=== PATIENT | female | born 1930 | race Caucasian/White ===

== ENCOUNTER 2018-07-23 08:51 | Outpatient (REF) | payer MEDICARE, BC ==
[~2018-07-23 08:51] MED LIST: ASPIRIN EC81 MG PO; ASPIRIN81 MG PO; DIGOXIN0.125 MG PO; FUROSEMIDE20 MG PO; METOPROL TAR25 MG PO; OMEPRAZOLE20 MG PO
[2018-07-23 09:32] LABS: HEMATOCRIT 33.9 % (37.0-47.0); HEMOGLOBIN 10.7 g/dl (12.0-16.0)
== END 2018-07-23 09:32 | disposition home or self-care (01) ==
LOC: INF 08:51
PROVIDERS: ATTEND Family Medicine
DX: D64.9 Anemia, unspecified (principal)